=== PATIENT | female | born 1985 | race Caucasian/White ===

== ENCOUNTER 2024-05-27 07:57 | Emergency (ER) | payer OTHER ==
[~2024-05-27] VITALS: Ht 157.5 cm; Wt 77.1 kg
[2024-05-27] MEDS ORDERED: ONDANSETRON HCL INJ 2MG/ML 2ML 2 MG/ML VIAL ONE (08:10)
[2024-05-27 08:11] VITALS: TEMP 98.4
[2024-05-27 08:28] LABS: BASOPHILS % 0.2 % (0.0-1.0); EOSINOPHILS % 2.7 % (0.0-6.0); HEMOGLOBIN 12.8 g/dL (12.0-16.0); LYMPHOCYTES # (AUTO) 2.8 (1.0-3.2); LYMPHOCYTES % 44.1 % (18.0-39.1); MEAN CORPUSCULAR HEMOGLOBIN 30.9 pg (28-32); MEAN CORPUSCULAR HGB CONC 33.7 g/dL (31-35); MEAN CORPUSCULAR VOLUME 91.8 fL (81-99); MONOCYTES % 7.7 % (4.4-11.3); NEUTROPHILS # (AUTO) 2.9 (2.1-6.9); NEUTROPHILS % 45.1 % (38.7-80.0); PLATELET COUNT 301 x10e3/uL (140-360); RED BLOOD COUNT 4.14 x10e6/uL (3.6-5.1); WHITE BLOOD COUNT 6.35 x10e3/uL (4.8-10.8)
[2024-05-27 08:29] LABS: EOSINOPHILS # (AUTO) 0.2 (0.0-0.4); MONOCYTES # (AUTO) 0.5 (0.2-0.8)
[2024-05-27] MEDS: ONDANSETRON HCL INJ 2MG/ML 2ML 2 MG/ML VIAL IV STA (08:36)
[2024-05-27] MEDS: KETOROLAC TROMETHAMINE 30 MG/ML VIAL IV STA (08:36)
[2024-05-27] MEDS: SODIUM CHLORIDE 0.9% 1000ML 1,000 ML IV ONE (08:37)
[2024-05-27 08:39] LABS: ANION GAP 14.5 mmol/L (8-16); POTASSIUM 3.5 mmol/L (3.5-5.1)
[2024-05-27 08:40] LABS: ALBUMIN 3.9 g/dL (3.5-5.0); ALBUMIN/GLOBULIN RATIO 1.3 (0.8-2.0); BILIRUBIN,TOTAL 0.4 mg/dL (0.2-1.2); CALCIUM 8.8 mg/dL (8.4-10.2); CREATININE, SERUM 0.71 mg/dL (0.57-1.11); TOTAL PROTEIN 6.9 g/dL (6.5-8.1)
[2024-05-27 09:55] VITALS: PULSE 81; RESP 16; O2SAT 99
[2024-05-27 10:00] LABS: BILIRUBIN,URINE NEGATIVE (NEGATIVE); CLARITY,URINE CLOUDY (CLEAR); COLOR,URINE YELLOW (YELLOW); GLUCOSE, URINE NEGATIVE (NEGATIVE); KETONES,URINE NEGATIVE (NEGATIVE); LEUKOCYTE ESTERASE ,URINE TRACE (NEGATIVE); NITRITE,URINE NEGATIVE (NEGATIVE); PH,URINE 6 (5 - 7); PROTEIN,URINE DIPSTICK 1+ (NEGATIVE); URINE UROBILINOGEN 0.2 mg/dL (0.2 - 1)
[2024-05-27 10:01] LABS: BACTERIA,URINE MODERATE /HPF; EPITHELIAL CELLS,URINE FEW /LPF; RBC,URINE >50 /HPF (0-5)
[2024-05-27] MEDS ORDERED: FLOMAX0.4 MG PO (10:37)
[2024-05-27] MEDS ORDERED: CEPHALEXIN500 MG PO (10:37)
[2024-05-27] MEDS ORDERED: ONDANSETRON ODT4 MG PO (10:37)
[2024-05-27] MEDS ORDERED: ULTRAM 50MG50 MG PO (10:37)
== END 2024-05-27 11:00 | disposition home or self-care (01) ==
LOC: ER 08:00
DX: R10.9 Unspecified abdominal pain (principal); N13.2 Hydronephrosis with renal and ureteral calculous obstruction; R82.71 Bacteriuria; R11.2 Nausea with vomiting, unspecified
CPT/HCPCS: 36415; 74176; 80053; 81001; 83690; 84702; 85025; 99284; J1885; J2405

== ENCOUNTER → 2024-10-26 | Day surgery (SDC) | payer OTHER ==
[2024-10-18 09:38] LABS: BASOPHILS % 0.3 % (0.0-1.0); EOSINOPHILS % 0.7 % (0.0-6.0); LYMPHOCYTES % 32.5 % (18.0-39.1); MONOCYTES % 7.4 % (4.4-11.3); NEUTROPHILS % 58.9 % (38.7-80.0); RED CELL DISTRIBUTION WIDTH 12.0 % (11.7-14.4)
[2024-10-18 10:09] LABS: EST GLOMERULAR FILTRATION RATE 115.0 ML/MIN (>=60)
[~2024-10-26] MED LIST: CEPHALEXIN500 MG PO; DEXAMETHASONE SOD PHOS INJ 4 MG/ML SDV ONE; FENTANYL CITRATE/PF 100MCG/2 ML INJ ONE; FLOMAX0.4 MG PO; HYDROCODONE/APAP 7.5MG-325MG 1 EA TAB ONE; LIDOCAINE HCL 2% LOCAL INJ 5 ML SDV VIAL INJ ONE; METOCLOPRAMIDE HCL 10 MG/2ML VIAL ONE; MIDAZOLAM HCL 2 MG/2 ML VIAL ONE; ONDANSETRON HCL INJ 2MG/ML 2ML 2 MG/ML VIAL ONE; ONDANSETRON ODT4 MG PO; PROPOFOL IV EMULSION 10 MG/ML 20 ML VIAL ONE; SUCCINYLCHOLINE CHLORIDE 20 MG/ML 10ML VIAL ONE; ULTRAM 50MG50 MG PO
[2024-10-26] MEDS: LACTATED RINGER'S 1,000 ML ONE (06:53)
[2024-10-26] MEDS: CEFTRIAXONE 1 GM VIAL ONE (06:55)
[2024-10-26 07:47] VITALS: TEMP 97.6
[2024-10-26] MEDS: ONDANSETRON HCL INJ 2MG/ML 2ML 2 MG/ML VIAL IV ONE (08:00)
[2024-10-26] MEDS: FENTANYL CITRATE/PF 100MCG/2 ML INJ IV ONE ×2 (08:02→08:20)
[2024-10-26] MEDS: METOCLOPRAMIDE HCL 10 MG/2ML VIAL IV ONE (08:23)
[2024-10-26] MEDS: HYDROCODONE/APAP 7.5MG-325MG 1 EA TAB PO ONE (08:50)
[2024-10-26 09:45] VITALS: BP 117/64; PULSE 71; RESP 18; O2SAT 99
== END | disposition home or self-care (01) ==
LOC: OR 05:30
PROVIDERS: ATTEND Urology
DX: N20.0 Calculus of kidney (principal); Z01.810 Encounter for preprocedural cardiovascular examination; Z01.812 Encounter for preprocedural laboratory examination; Z01.818 Encounter for other preprocedural examination
CPT/HCPCS: 36415; 71046; 74420; 80048; 81025; 85025; 88300; 93005; C1758; C1769; J0330; J0696; J1100; J2003; J2250; J2405; J2765